=== PATIENT | male | born 1965 | race Caucasian/White ===

== ENCOUNTER → 2016-10-15 | Outpatient (CLI) | payer OTHER ==
--- NOTE | 2016-10-15 10:00 | CT ---
EXAMINATION TYPE: CT chest w con DATE OF EXAM: 10/15/2016 8:40 AM COMPARISON: NONE HISTORY: 51-year-old male Shortness of breath TECHNIQUE: Contiguous axial scanning of the chest after the administration of 100 ml mL of Omnipaque 300. Coronal/sagittal reconstructions performed. CT DLP: 347.50mGycm. Automatic exposure control utilized for a dose reduction. FINDINGS: The heart is normal size without pericardial effusion. Aorta is normal caliber. Prominent but nonenlarged 8mm AP window lymph node. No thoracic lymphadenopathy by CT size criteria. Incidental trace bilateral gynecomastia There is mild diffuse bronchial wall thickening and mild centrilobular emphysema noted. No consolidat ion or pleural effusion. Visualized upper abdomen shows mild diffuse thickening of the left adrenal gland without discrete nod ularity. Bones: No osseous destructive process. IMPRESSION: 1. COPD with mild emphysema. 2. Otherwise, no acute pulmonary process.
== END | disposition home or self-care (01) ==
LOC: RADCTMAIN 08:06
PROVIDERS: ATTEND Family Medicine
DX: J44.9 Chronic obstructive pulmonary disease, unspecified (principal)
CPT/HCPCS: 71260; Q9967

== ENCOUNTER → 2016-10-20 | Outpatient (CLI) | payer OTHER ==
[~2016-10-20] MED LIST: REGADENOSON 0.4 MG/5 ML SYRINGE IV ONE
--- NOTE | 2016-10-20 12:14 | EST ---
DATE OF SERVICE: 10/20/2016 AGE: 51Y SEX: M HT: 5'5" WT: 190 lbs. Lexiscan Cardiolite Stress Test *Heart Rate Blood Pressure *Rest: 72 Rest: 142/93 * *Max. Achieved: 100 Maximum BP: 154/96 85% PMHR: 145 100% PMHR: 171 *METS: - INDICATIONS: Shortness of breath. MEDICATIONS: Amlodipine. Baseline EKG revealed normal sinus rhythm without significant ST-T changes. With Lexiscan administration, heart rate went up from 72 to 100 beats per minute, blood pressure changed from 142/93 to 154/96. Patient had transient shortness of breath and tightness in the chest that resolved very quickly. EKG did not reveal any ST segment changes to indicate ischemia. IMPRESSION: 1. By EKG criteria, this is an unremarkable Lexiscan stress test. 2. The nuclear scan results, which are more pertinent, will be reported by the radiologist.
--- NOTE | 2016-10-20 13:07 | NM ---
EXAMINATION TYPE: NM stress lexiscan cardiolite DATE OF EXAM: 10/20/2016 10:47 AM COMPARISON: NONE HISTORY: 51-year-old male with shortness of breath TECHNIQUE: After the intravenous administration of 10.7 mCi Tc 99m Sestamibi - Cardiolite resting SP ECT images acquired 50 minutes post injection. The patient received 0.4mg Lexiscan, 25.8 mCi Tc 99m Sestamibi - Stress images obtained [address] injection FINDINGS: Review of stress and rest SPECT images demonstrates diminished perfusion along the inferior wall. Thi s appears to be matched and probably due to adjacent GI activity. Polar maps are normal. Gated analys is shows normal wall motion with an estimated left ventricular ejection fraction of 54 %. TID is demetrio culated at 1.00, within normal limits. IMPRESSION: Some diminished perfusion along the inferior wall is matched and suspected to be on the basis of moshe cent GI activity. Polar maps are normal. No convincing scintigraphic evidence for reversible ischemia .
== END | disposition home or self-care (01) ==
LOC: RADNMMAIN 07:48
PROVIDERS: ATTEND Family Medicine
DX: R06.02 Shortness of breath (principal)
CPT/HCPCS: 93017; 78452; A9500; J2785

== ENCOUNTER → 2016-10-21 | Outpatient (CLI) | payer OTHER ==
--- NOTE | 2016-10-21 10:29 | ECHOF ---
Referral Reason:Sob R06.02 MEASUREMENTS -------- HEIGHT: 165.1 cm WEIGHT: 86.2 kg BP: 161/96 RVIDd: 3.2 cm (< 3.3) IVSd: 1.1 cm (0.6 - 1.1) LVIDd: 4.7 cm (3.9 - 5.3) LVPWd: 1.1 cm (0.6 - 1.1) IVSs: 1.6 cm LVIDs: 3.2 cm LVPWs: 1.6 cm LA Diam: 3.6 cm (2.7 - 3.8) LAESV Index (A-L): 21.38 ml/m Ao Diam: 3.5 cm (2.0 - 3.7) AV Cusp: 2.2 cm (1.5 - 2.6) MV EXCURSION: 23.991 mm (> 18.000) MV EF SLOPE: 92 mm/s (70 - 150) EPSS: 0.6 cm MV E Ralph: 0.79 m/s MV DecT: 237 ms MV A Ralph: 0.90 m/s MV E/A Ratio: 0.88 FINDINGS -------- Sinus rhythm. This was a technically good study. The left ventricular size is normal. There is borderline concentric left ventricular hypertrophy. Overall left ventricular systolic function is normal with, an EF between 60 - 65 %. The right ventricle is normal in size. Normal LA size by volume 22+/-6 ml/m2. The right atrium is normal in size. The aortic valve is trileaflet and appears structurally normal. The mitral valve is normal. The tricuspid valve appears structurally normal. Trace/mild (physiologic) pulmonic regurgitation. The aortic root size is normal. Normal inferior vena cava with normal inspiratory collapse consistent with estimated right atrial pressure of 5 mmHg. The pericardium is normal. CONCLUSIONS -------- 1. Sinus rhythm. 2. The mitral valve is normal. 3. The tricuspid valve appears structurally normal. 4. Trace/mild (physiologic) pulmonic regurgitation. 5. The aortic root size is normal. 6. Normal inferior vena cava with normal inspiratory collapse consistent with estimated right atrial pressure of 5 mmHg. 7. The pericardium is normal. 8. This was a technically good study. 9. The left ventricular size is normal. 10. There is borderline concentric left ventricular hypertrophy. 11. Overall left ventricular systolic function is normal with, an EF between 60 - 65 %. 12. The right ventricle is normal in size. 13. Normal LA size by volume 22+/-6 ml/m2. 14. The right atrium is normal in size. 15. The aortic valve is trileaflet and appears structurally normal. [employer]: Taylor Arevalo RDCS
== END | disposition home or self-care (01) ==
LOC: RADECHMAIN 08:01
PROVIDERS: ATTEND Family Medicine
DX: I37.1 Nonrheumatic pulmonary valve insufficiency (principal); I51.7 Cardiomegaly
CPT/HCPCS: 93306